=== PATIENT | male | born 1945 | race Caucasian/White ===

== ENCOUNTER 2016-10-05 09:12 | Outpatient (CLI) | payer MEDICARE, OTHER ==
--- NOTE | 2016-10-05 14:21 | Diagnostic Imaging Report ---
GILL CHENG [facility] [address] [facility] [address] [place], [place]. [address] Report Submission Date: Oct 05, 2016 10:55:53 AM LOCOMOTIVE DRIVER Patient Study Name: BALTAZAR VILLA Date: Oct 05, 2016 9:46:45 AM LOCOMOTIVE DRIVER Modality Type: US Gender: M Description: DPLX SCN XTRCRAN ART CMP EDGARD : 45 Institution: [facility] Physician: GILL CHENG Ultrasound Doppler carotid History: Carotid stenosis and right carotid endarterectomy 5 years ago. Findings: Spectral Doppler sonography of the carotid and vertebral arteries is performed. On the right there is a moderate amount of eccentric hyperechoic plaque in the mid common carotid artery. Mild eccentric hyperechoic plaque is observed in the right internal carotid artery. Antegrade right carotid and vertebral artery flow is observed with normal Doppler waveforms. On the left there is scattered hyperechoic plaque in the common carotid artery and a large amount of hyperechoic plaque in the carotid bulb and origin of the internal carotid artery. Spectral broadening is present in the proximal external and internal carotid arteries. Antegrade left carotid and vertebral artery flow is observed with otherwise normal Doppler waveforms. Peak systolic velocities in the internal carotid arteries are 101 cm per second right and 161 left. Peak and diastolic velocities in the internal carotid arteries are 30 cm per second right and 56 left. Peak systolic velocity in the left external carotid artery is 200 cm per second. Internal to common carotid artery ratios are 1.3 right and 2.1 left. Impression: 1. Using NASCET criteria, there is 50 to 69% left internal carotid artery stenosis and no right internal carotid artery stenosis. 2. Left external carotid artery stenosis. 3. Antegrade vertebral artery flow. Electronically signed on Oct 05, 2016 10:55:53 AM LOCOMOTIVE DRIVER by: Ross MTZ
== END 2016-10-05 09:13 ==
LOC: LAB 09:12
PROVIDERS: ATTEND Family Medicine
DX: I65.29 Occlusion and stenosis of unspecified carotid artery (principal); E78.00 Pure hypercholesterolemia, unspecified; I10 Essential (primary) hypertension; R09.89 Other specified symptoms and signs involving the circulatory and respiratory systems
CPT/HCPCS: 36415; 80048; 80061; 93880

== ENCOUNTER 2018-09-20 09:50 | Outpatient (CLI) | payer MEDICARE, OTHER ==
[2018-09-20 10:22] LABS: EOSINOPHILS % 2.3 % (0.0-6.8); MEAN CORPUSCULAR HEMOGLOBIN 31.9 pg (28.0-34.0); NEUTROPHILS # 3.1 # k/uL (1.4-7.7)
[2018-09-20 10:40] LABS: eGFR (Non-African) > 60
--- NOTE | 2018-09-20 12:57 | Diagnostic Imaging Report ---
<p>Your browser does not support iframes.</p> GILL CHENG [facility] [address] [address] Report Submission Date: Sep 20, 2018 11:32:56 AM BROKERAGE MANAGER Patient Study Name: BALTAZAR VILLA Date: Sep 20, 2018 10:10:24 AM BROKERAGE MANAGER Modality Type: US Gender: F Description: US AAA : 45 Institution: [facility] Physician: GILL CHENG Examination: Ultrasound aorta History: Evaluate for aneurysm Comparison exams: None available Findings: Proximal aorta measures 2.7 cm maximally. Mid aorta measures 2.4 cm maximally. Distal aorta measures 2.0 cm maximally. Iliac vessels measure 6 mm. Mild peripheral calcifications. Impression: No evidence for abdominal aortic aneurysm Electronically signed on Sep 20, 2018 11:32:56 AM BROKERAGE MANAGER by: Dhruv MTZ
--- NOTE | 2018-09-20 12:57 | Diagnostic Imaging Report ---
<p>Your browser does not support iframes.</p> GILL CHENG [facility] [address] [address] Report Submission Date: Sep 20, 2018 11:32:56 AM CONSUMER ANALYST Patient Study Name: BALTAZAR VILLA Date: Sep 20, 2018 10:10:24 AM CONSUMER ANALYST Modality Type: US Gender: F Description: US AAA : 45 Institution: [facility] Physician: GILL CHENG Examination: Ultrasound aorta History: Evaluate for aneurysm Comparison exams: None available Findings: Proximal aorta measures 2.7 cm maximally. Mid aorta measures 2.4 cm maximally. Distal aorta measures 2.0 cm maximally. Iliac vessels measure 6 mm. Mild peripheral calcifications. Impression: No evidence for abdominal aortic aneurysm Electronically signed on Sep 20, 2018 11:32:56 AM CONSUMER ANALYST by: Dhruv MTZ
--- NOTE | 2018-09-21 10:13 | Diagnostic Imaging Report ---
<p>Your browser does not support iframes.</p> GILL CHENG [facility] [id number] [address] Report Submission Date: Sep 20, 2018 11:54:23 AM TECHNICAL ILLUSTRATOR Patient Study Name: BALTAZAR VILLA Date: Sep 20, 2018 10:28:52 AM TECHNICAL ILLUSTRATOR Modality Type: US Gender: F Description: US CAROTID : 45 Institution: [facility] Physician: GILL CHENG Examination: Carotid artery ultrasound History: Carotid stenosis. Comparison exams: None available Findings: Right carotid: Common carotid artery peak systolic velocity 76.8 cm/s; end diastolic velocity 15.5 cm/s. Internal carotid artery peak systolic velocity 68.6 cm/s; end diastolic velocity 25.8 cm/s. External carotid artery velocity to 82.2 cm/s. Vertebral artery velocity 44.1 cm/s Vertebral flow antegrade. Scattered plaquing. Narrowing of the common carotid artery by at least 30 to 40%. Left carotid: Common carotid artery peak systolic velocity 63.3 cm/s; end diastolic velocity 13.6 cm/s. Internal carotid artery peak systolic velocity 135.9 cm/s; end diastolic velocity 30.5 cm/s. External carotid artery velocity to 148.4 cm/s. Vertebral artery velocity 43.6 cm/s Vertebral flow antegrade. scattered plaquing. Narrowing of the carotid bulb and internal carotid artery by at least 70 - 80%. Right ICA/CCA Ratio: 1.1; Left ICA/CCA Ratio 2.8 Impression: Elevated left carotid ratio associated with increased internal and external carotid artery velocities. Narrowing/plaquing by at least 70 to 80%. Moderate narrowing/plaquing of the right common carotid system by at least 30 to 40%. Patient may benefit from CT/MRA of the carotid arteries. Electronically signed on Sep 20, 2018 11:54:23 AM TECHNICAL ILLUSTRATOR by: Dhruv MTZ
== END 2018-09-20 10:15 ==
LOC: RAD 09:50
PROVIDERS: ATTEND Family Medicine
DX: I10 Essential (primary) hypertension (principal); I73.9 Peripheral vascular disease, unspecified; E78.00 Pure hypercholesterolemia, unspecified; N40.0 Benign prostatic hyperplasia without lower urinary tract symptoms; Z13.6 Encounter for screening for cardiovascular disorders; R09.89 Other specified symptoms and signs involving the circulatory and respiratory systems; Z72.0 Tobacco use
CPT/HCPCS: 36415; 80053; 80061; 84153; 85025; 93880